=== PATIENT | female | born 1950 | race Caucasian/White ===

== ENCOUNTER 2019-09-13 05:25 | Inpatient (IN) | payer OTHER ==
[~2019-09-13] VITALS: Ht 149.9 cm; Wt 88.2 kg
[~2019-09-13 05:25] MED LIST: ASPI-1182 PO; LORA10TA7 PO; LOSA50TA64 PO; SIMV-259 PO
[2019-09-13] MEDS ORDERED: RINGERS SOLUTION,LACTATED 1,000 ML IV ONE ×2 (05:28→06:00)
[2019-09-13 06:12] LABS: GLUCOMETER DEV NAME(LOC) SDS.; GLUCOSE,POINT OF CARE 97 MG/DL (70-110)
[2019-09-13] MEDS ORDERED: BUPIVACAINE HCL/PF 0.5% 30 ML VIAL ONE (06:44)
[2019-09-13] MEDS ORDERED: SODIUM CHLORIDE 0.9% 20 ML ONE (06:45)
[2019-09-13] MEDS ORDERED: TRANEXAMIC ACID 1,000 MG in DEXTROSE 5%-WATER 50 ML IV STA (06:47)
[2019-09-13] MEDS ORDERED: BUPIVACAINE LIPOSOME/PF 1.3%-13.3MG/ML SUSPENSION 20 ML VIAL INJ STA (06:47)
[2019-09-13] MEDS ORDERED: SODIUM CL IRRIG SOLN BAG 3,000 ML IRRIG ONE (06:50)
[2019-09-13] MEDS ORDERED: BACITRACIN 50,000 UNITS/VIAL ONE (06:51)
[2019-09-13] MEDS ORDERED: SODIUM CHLORIDE 0.9% 10 ML ONE (06:51)
[2019-09-13] MEDS ORDERED: SODIUM CHLORIDE 0.9% 50 ML ONE (07:11)
[2019-09-13] MEDS ORDERED: CELECOXIB 200 MG CAPSULE ONE (07:14)
[2019-09-13] MEDS ORDERED: ONDANSETRON HCL 4 MG/2 ML VIAL IVP PRN ×2 (09:30→10:00)
[2019-09-13] MEDS ORDERED: HYDROmorphone 2 MG/ML SYRINGE IVP PRN ×3 (09:30)
[2019-09-13] MEDS ORDERED: MIDAZOLAM HCL 2 MG/2 ML VIAL IVP PRN (09:30)
[2019-09-13] MEDS ORDERED: ACETAMINOPHEN 1000 MG/ISO-OSM 100 ML IV ONE (09:30)
[2019-09-13] MEDS ORDERED: ACETAMINOPHEN 1000 MG/ISO-OSM 100 ML IV SCH (09:45)
[2019-09-13] MEDS ORDERED: DEXTROSE 5%-LACTATED RINGERS 1,000 ML IV SCH (09:56)
[2019-09-13] MEDS ORDERED: ZOLPIDEM TARTRATE 10 MG TABLET PO PRN (10:00)
[2019-09-13] MEDS ORDERED: BACITRACIN 28.4 GM OINTMENT TP PRN (10:00)
[2019-09-13] MEDS ORDERED: MAG HYDROX/AL HYDROX/SIMETH 30 ML SUSP UDCUP PO PRN (10:00)
[2019-09-13] MEDS ORDERED: DiphenhydrAMINE HCL 50 MG/ML VIAL IVP PRN (10:00)
[2019-09-13] MEDS ORDERED: BISACODYL 10 MG RECTAL RECTAL SUPPOSITORY PR PRN (10:00)
[2019-09-13 12:23] VITALS: BP 121/54
[2019-09-13] MEDS: OxyCODONE HCL/ACETAMINOPHEN 5-325 MG TABLET PO PRN (15:27)
[2019-09-13] MEDS ORDERED: SODIUM CHLORIDE 0.9% 250 ML IV ONE (16:50)
[2019-09-13 17:03] VITALS: BP 126/58
[2019-09-13] MEDS: CeFAZolin 1 GM/DEXTROSE 50 ML IV SCH ×2 (18:30→23:32)
[2019-09-13 19:22] LABS: GLUCOMETER DEV NAME(LOC) 6N.2; GLUCOSE,POINT OF CARE 84 MG/DL (70-110)
[2019-09-13 19:50] VITALS: BP 137/72
[2019-09-13] MEDS: DOCUSATE SODIUM 100 MG CAPSULE PO SCH (20:38)
[2019-09-13] MEDS: FAMOTIDINE 20 MG TABLET PO SCH (20:38)
[2019-09-13] MEDS: CYCLOBENZAPRINE HCL 10 MG TABLET PO SCH (20:39)
[2019-09-13 21:07] LABS: GLUCOMETER DEV NAME(LOC) 4E.2; GLUCOSE,POINT OF CARE 96 MG/DL (70-110)
[2019-09-13] MEDS: HYDROmorphone 2 MG/ML SYRINGE IVP PRN (23:22)
[2019-09-13 23:58] VITALS: BP 128/76
[2019-09-14 04:00] VITALS: BP 132/63
[2019-09-14] MEDS ORDERED: FentaNYL CITRATE-PF 100 MCG/2 ML VIAL IVP ONE (04:49)
[2019-09-14] MEDS ORDERED: ROCURONIUM BROMIDE 10 MG/ML 5 ML VIAL IVP ONE (04:49)
[2019-09-14] MEDS ORDERED: LIDOCAINE/PF 2% 5 ML VIAL IM ONE (04:49)
[2019-09-14] MEDS ORDERED: MIDAZOLAM HCL 2 MG/2 ML VIAL IVP ONE (04:49)
[2019-09-14] MEDS ORDERED: PROPOFOL 1% 20 ML VIAL IVP ONE (04:49)
[2019-09-14] MEDS: OxyCODONE HCL/ACETAMINOPHEN 5-325 MG TABLET PO PRN (06:47)
[2019-09-14 07:26] VITALS: BP 142/70
[2019-09-14] MEDS: CYCLOBENZAPRINE HCL 10 MG TABLET PO SCH ×2 (08:04→20:07)
[2019-09-14] MEDS: DOCUSATE SODIUM 100 MG CAPSULE PO SCH ×2 (08:05→20:07)
[2019-09-14] MEDS: FAMOTIDINE 20 MG TABLET PO SCH ×2 (08:05→20:07)
[2019-09-14] MEDS: LOSARTAN POTASSIUM 50 MG TABLET PO SCH (08:06)
[2019-09-14] MEDS: RIVAROXABAN 10 MG TABLET PO SCH ×2 (08:06→17:48)
[2019-09-14] MEDS: SIMVASTATIN 10 MG TABLET PO SCH (08:06)
[2019-09-14] MEDS ORDERED: LORATADINE 10 MG TABLET PO SCH (09:00)
[2019-09-14] MEDS: HYDROmorphone 2 MG/ML SYRINGE IVP PRN ×4 (10:33→23:39)
[2019-09-14 15:32] VITALS: BP 156/70
[2019-09-14 19:55] VITALS: BP 142/72
[2019-09-14 20:00] LABS: GLUCOMETER DEV NAME(LOC) 4E.2; GLUCOSE,POINT OF CARE 146 MG/DL (70-110)
[2019-09-15 00:11] VITALS: BP 135/77
[2019-09-15 04:29] VITALS: BP 137/77
[2019-09-15 05:39] LABS: BASOPHILS % (AUTO) 0.3 % (0.0-2.0); EOSINOPHILS % (AUTO) 0.4 % (1.0-6.0); HEMATOCRIT 34.4 % (36-46); HEMOGLOBIN 11.7 g/dL (12.0-16.0); LYMPHOCYTES # (AUTO) 1.4 K/uL (1.0-4.8); LYMPHOCYTES % (AUTO) 13.7 % (22.0-44.0); MEAN CORPUSCULAR HEMOGLOBIN 29.4 pg (26.0-34.0); MEAN CORPUSCULAR VOLUME 87 fL (80-100); MONOCYTES # (AUTO) 0.8 K/uL (0.1-1.0); MONOCYTES % (AUTO) 7.6 % (2.0-9.0); NEUTROPHILS # (AUTO) 7.9 K/uL (1.8-7.7); PLATELET COUNT (AUTO) 156 K/uL (150-450); RED BLOOD CELL COUNT(AUTO) 3.97 MIL/uL (4.00-5.20); RED CELL DISTRIBUTION WIDTH 14.3 % (11.5-14.5)
[2019-09-15 05:48] LABS: INR 1.3 (0.9-1.1); PROTHROMBIN TIME 12.8 SEC (9.4-11.6)
[2019-09-15 05:53] LABS: CALCIUM, TOTAL 8.4 mg/dL (8.8-10.5); CREATININE 0.96 mg/dL (0.60-1.30); POTASSIUM 4.4 mmol/L (3.5-5.1)
[2019-09-15] MEDS: HYDROmorphone 2 MG/ML SYRINGE IVP PRN (06:16)
[2019-09-15 07:13] VITALS: BP 124/66
[2019-09-15] MEDS: DOCUSATE SODIUM 100 MG CAPSULE PO SCH ×2 (08:39→20:42)
[2019-09-15] MEDS: LOSARTAN POTASSIUM 50 MG TABLET PO SCH (08:39)
[2019-09-15] MEDS: FAMOTIDINE 20 MG TABLET PO SCH ×2 (08:39→20:42)
[2019-09-15] MEDS: CYCLOBENZAPRINE HCL 10 MG TABLET PO SCH ×2 (08:39→20:42)
[2019-09-15] MEDS: SIMVASTATIN 10 MG TABLET PO SCH (08:40)
[2019-09-15] MEDS: OxyCODONE HCL/ACETAMINOPHEN 5-325 MG TABLET PO PRN ×2 (10:25→14:27)
[2019-09-15 12:04] VITALS: BP 129/61
[2019-09-15 12:48] LABS: BASOPHILS % (AUTO) 0.4 % (0.0-2.0); EOSINOPHILS % (AUTO) 0.3 % (1.0-6.0); HEMOGLOBIN 11.6 g/dL (12.0-16.0); LYMPHOCYTES # (AUTO) 1.3 K/uL (1.0-4.8); LYMPHOCYTES % (AUTO) 11.2 % (22.0-44.0); MEAN CORPUSCULAR HEMOGLOBIN 28.9 pg (26.0-34.0); MEAN CORPUSCULAR HGB CONC 33.2 G/dL (31.0-37.0); MEAN CORPUSCULAR VOLUME 87 fL (80-100); MONOCYTES # (AUTO) 0.7 K/uL (0.1-1.0); MONOCYTES % (AUTO) 6.3 % (2.0-9.0); NEUTROPHILS # (AUTO) 9.5 K/uL (1.8-7.7); NEUTROPHILS % (AUTO) 81.8 % (40.0-70.0); PLATELET COUNT (AUTO) 171 K/uL (150-450); RED BLOOD CELL COUNT(AUTO) 4.03 MIL/uL (4.00-5.20); RED CELL DISTRIBUTION WIDTH 14.2 % (11.5-14.5)
[2019-09-15 16:27] VITALS: BP 125/65
[2019-09-15] MEDS: RIVAROXABAN 10 MG TABLET PO SCH (17:39)
[2019-09-15 19:54] VITALS: BP 135/67
[2019-09-16 00:09] VITALS: BP 142/73
[2019-09-16] MEDS: OxyCODONE HCL/ACETAMINOPHEN 5-325 MG TABLET PO PRN ×3 (00:16→15:32)
[2019-09-16 04:29] VITALS: BP 133/65
[2019-09-16 07:23] VITALS: BP 134/64
[2019-09-16] MEDS: LOSARTAN POTASSIUM 50 MG TABLET PO SCH (08:57)
[2019-09-16] MEDS: FAMOTIDINE 20 MG TABLET PO SCH (08:57)
[2019-09-16] MEDS: DOCUSATE SODIUM 100 MG CAPSULE PO SCH (08:57)
[2019-09-16] MEDS: SIMVASTATIN 10 MG TABLET PO SCH (08:57)
[2019-09-16] MEDS: CYCLOBENZAPRINE HCL 10 MG TABLET PO SCH (08:57)
[2019-09-16 11:22] VITALS: BP 111/66
[2019-09-16 15:38] VITALS: BP 126/69
[2019-09-16] MEDS: RIVAROXABAN 10 MG TABLET PO SCH (15:55)
== END 2019-09-16 17:30 | disposition home or self-care (01) | DRG 470 ==
LOC: 6N 05:25 → 4E 11:30
PROVIDERS: ADMIT Orthopaedic Surgery; ATTEND Orthopaedic Surgery
PROC: 0SRC069 Replacement of Right Knee Joint with Oxidized Zirconium on Polyethylene Synthetic Substitute, Cemented, Open Approach (ICD-10-PCS; principal; 2019-09-13 07:30)
DX: M17.11 Unilateral primary osteoarthritis, right knee (principal); E11.9 Type 2 diabetes mellitus without complications; E78.00 Pure hypercholesterolemia, unspecified; I10 Essential (primary) hypertension; E66.9 Obesity, unspecified; E78.5 Hyperlipidemia, unspecified; Z68.39 Body mass index [BMI] 39.0-39.9, adult; Z88.8 Allergy status to other drugs, medicaments and biological substances; Z79.82 Long term (current) use of aspirin; Z79.899 Other long term (current) drug therapy
CPT/HCPCS: 87081; 88300; 97110; 97116; 97162; 97166; 97530; 97535; C9290; G0238; G0378; J0131; J0690; J1170; J2250; J2704; J3010; J3490; J7050; J7060; J7120